=== PATIENT | female | born 1970 | race Caucasian/White ===

== ENCOUNTER 2016-10-20 05:23 | Day surgery (SDC) ==
[2016-10-20] MEDS ORDERED: LR 1,000 ML ONE (05:36)
[2016-10-20] MEDS ORDERED: KEFZOL 1 GM/D5W 0 ML ONE (05:36)
[2016-10-20] MEDS ORDERED: VANCOMYCIN 1 GM/NS 250 ML ONE (05:41)
[2016-10-20] MEDS ORDERED: NEOSPORIN G.U. IRRIGANT ONE (06:41)
[2016-10-20] MEDS ORDERED: SENSORCAINE 0.5%-EPI 1:200,000 ONE (06:41)
[2016-10-20] MEDS ORDERED: TRANSDERM-SCOP ONE (06:43)
[2016-10-20] MEDS ORDERED: FENTANYL ONE (07:52)
[2016-10-20] MEDS ORDERED: DIPRIVAN 1% ONE (07:53)
[2016-10-20] MEDS ORDERED: VERSED ONE (07:53)
[2016-10-20] MEDS ORDERED: DILAUDID ONE (07:54)
[2016-10-20] MEDS ORDERED: KETAMINE (DOSE) ONE (07:55)
[2016-10-20] MEDS: DILAUDID ONE ×5 (07:56→08:30)
[2016-10-20] MEDS ORDERED: NORCO-10 ONE (09:00)
[2016-10-20] MEDS ORDERED: DECADRON ONE (09:04)
[2016-10-20] MEDS ORDERED: ZOFRAN ONE (09:04)
[2016-10-20] MEDS ORDERED: EPHEDRINE ONE (09:04)
[2016-10-20 09:43] VITALS: BP 109/65
--- NOTE | 2016-10-20 09:59 | OPERATIVE NOTE ---
PROCEDURE DATE: 10/20/2016 PREOPERATIVE DIAGNOSIS: Right wrist dorsal ganglion cyst. POSTOPERATIVE DIAGNOSIS: Right wrist dorsal ganglion cyst. PROCEDURE PERFORMED: Excision of right wrist dorsal ganglion cyst. SURGEON: Jigar Mccall MD ASSISTANTS: HATTIE Mckenna ANESTHESIA: General. COMPLICATIONS: None. BLOOD LOSS: Minimal. DESCRIPTION OF PROCEDURE: The patient was brought to the operative suite and placed in supine position. After successful administration of general anesthesia, a well-padded tourniquet was placed on the right proximal arm. The right upper extremity was prepped and draped in the usual sterile fashion. The arm was exsanguinated. The tourniquet was insufflated to 250 torr. A longitudinal was then made overlying the cyst. It was dissected sharply through the skin and bluntly down to the cyst. The cyst was then excised off its origin off the dorsal aspect of the scapholunate ligament. A window of the capsule was incised and then it was electrocauterized to prevent recurrence. The skin edges were then approximated with interrupted nylon suture. The wound was injected with Marcaine and a sterile dressing was applied. The patient tolerated the procedure well without complication. At the end of the procedure, all counts were correct x2. The patient was transferred to the recovery room in stable condition.
== END 2016-10-20 09:52 | disposition home or self-care (01) ==
LOC: OPS 05:23
PROVIDERS: ATTEND Orthopaedic Surgery
DX: M67.431 Ganglion, right wrist (principal)
CPT/HCPCS: 88304; J0690; J1100; J1170; J2250; J2405; J3010; J3370; J7120

== ENCOUNTER 2017-05-19 01:34 | Inpatient (IN) ==
[2017-05-14 11:10] LABS: URINE MICRO REVIEW NEEDED? NO; URINE SOURCE CLEAN CATCH
[2017-05-14 11:17] LABS: BILIRUBIN URINE NEGATIVE (NEGATIVE); BLOOD URINE NEGATIVE (NEGATIVE); COLOR YELLOW; GLUCOSE URINE NEGATIVE (NEGATIVE); LEUKOCYTES URINE TRACE (NEGATIVE); NITRITE URINE NEGATIVE (NEGATIVE); PROTEIN URINE 30 mg/dL (NEGATIVE); SP GRAVITY URINE 1.036; TURBIDITY URINE CLEAR (CLEAR); UROBILINOGEN URINE 2 mg/dL (NORMAL)
[2017-05-14 11:18] LABS: UR EPITHELIAL CELLS >10 /HPF (<10); URINE BACTERIA 1+ /HPF; URINE RBC <10 /HPF (<10); URINE WBC <10 /HPF (<10)
[2017-05-14 11:20] LABS: HEMATOCRIT 42.7 % (37.0-47.0); HEMOGLOBIN 14.3 g/dL (12.0-16.0); MCH 32.4 PG (27-31); MCHC 33.5 g/dL (33-37); MCV 96.8 FL (81-99); MPV 9.9 FL (7.4-10.4); RBC 4.41 XMIL (4.2-5.4)
[2017-05-19] MEDS ORDERED: PEPCID ONE (05:31)
[2017-05-19] MEDS ORDERED: VALIUM ONE (05:31)
[2017-05-19] MEDS ORDERED: TRANSDERM-SCOP ONE (05:31)
[2017-05-19] MEDS ORDERED: KEFZOL 1 GM/D5W 1 GM/50 ML IVPB ONE (05:32)
[2017-05-19] MEDS ORDERED: LR 1,000 ML ONE ×2 (05:32→08:47)
[2017-05-19] MEDS ORDERED: DIPRIVAN 1% ONE (05:56)
[2017-05-19] MEDS ORDERED: FENTANYL ONE (05:56)
[2017-05-19] MEDS ORDERED: VERSED ONE (05:56)
[2017-05-19] MEDS ORDERED: XYLOCAINE-MPF 2% ONE (07:08)
[2017-05-19] MEDS ORDERED: ZOFRAN ONE (07:08)
[2017-05-19] MEDS ORDERED: NORCURON ONE (07:08)
[2017-05-19] MEDS ORDERED: STERILE WATER INJ. ONE (07:08)
[2017-05-19] MEDS ORDERED: QUELICIN (DOSE) ONE (07:08)
[2017-05-19] MEDS ORDERED: ROBINUL ONE (07:08)
[2017-05-19] MEDS ORDERED: NEOSTIGMINE ONE (07:08)
[2017-05-19 07:29] LABS: URINE MICRO REVIEW NEEDED? NO; URINE SOURCE CATH
[2017-05-19 07:33] LABS: BILIRUBIN URINE NEGATIVE (NEGATIVE); BLOOD URINE NEGATIVE (NEGATIVE); COLOR YELLOW; GLUCOSE URINE NEGATIVE (NEGATIVE); LEUKOCYTES URINE NEGATIVE (NEGATIVE); NITRITE URINE NEGATIVE (NEGATIVE); PH URINE 7.5; PROTEIN URINE TRACE mg/dL (NEGATIVE); TURBIDITY URINE CLEAR (CLEAR); UROBILINOGEN URINE NORMAL (NORMAL)
[2017-05-19 07:34] LABS: UR EPITHELIAL CELLS <10 /HPF (<10); URINE BACTERIA NEGATIVE /HPF; URINE RBC <10 /HPF (<10); URINE WBC <10 /HPF (<10)
[2017-05-19] MEDS ORDERED: EXPAREL 1.3% ONE (07:37)
[2017-05-19] MEDS ORDERED: MARCAINE 0.25% PF ONE (07:37)
[2017-05-19] MEDS ORDERED: NAROPIN 0.5% ONE (07:46)
[2017-05-19] MEDS ORDERED: SODIUM CHLORIDE 0.9% 10 ML ONE (07:47)
[2017-05-19] MEDS ORDERED: DILAUDID PCA VIAL ONE (08:46)
[2017-05-19] MEDS: DEMEROL ONE ×2 (08:50→08:55)
[2017-05-19] MEDS ORDERED: NARCAN IV PRN (09:10)
[2017-05-19] MEDS ORDERED: PHENERGAN IV PRN (09:10)
[2017-05-19] MEDS ORDERED: LR 1,000 ML IV SCH (09:10)
[2017-05-19] MEDS ORDERED: SODIUM CHLORIDE 0.9% INJ PRN (09:10)
[2017-05-19] MEDS: DILAUDID ONE ×2 (09:10→09:20)
[2017-05-19] MEDS ORDERED: BENADRYL IV PRN (09:10)
[2017-05-19] MEDS ORDERED: DILAUDID PCA VIAL IV PRN (09:10)
[2017-05-19] MEDS: PHENERGAN ONE ×2 (09:25→09:30)
[2017-05-19] MEDS ORDERED: CLIMARA 0.05 MG/24 HR PATCH TD ONE (10:12)
[2017-05-19] MEDS: LR 1,000 ML IV SCH ×3 (10:20→23:27)
[2017-05-19] MEDS: PERIDEX MT SCH ×2 (15:59→23:28)
[2017-05-19] MEDS: CYMBALTA PO SCH (16:00)
[2017-05-19] MEDS: NEURONTIN PO PRN (16:07)
[2017-05-20] MEDS: LR 1,000 ML IV SCH (05:35)
[2017-05-20] MEDS: PRILOSEC PO SCH ×2 (05:35→06:04)
[2017-05-20 05:39] LABS: HEMATOCRIT 36.9 % (37.0-47.0); HEMOGLOBIN 12.1 g/dL (12.0-16.0); MCH 32.2 PG (27-31); MCHC 32.8 g/dL (33-37); MCV 98.1 FL (81-99); MPV 9.8 FL (7.4-10.4); RBC 3.76 XMIL (4.2-5.4)
[2017-05-20] MEDS ORDERED: SALINE LOCK IV FLUID XX ONE ×2 (06:33→08:35)
[2017-05-20] MEDS ORDERED: NORCO-10 PO PRN (08:14)
[2017-05-20] MEDS ORDERED: PERCOCET-10 PO PRN (08:33)
[2017-05-20] MEDS: CYMBALTA PO SCH (08:57)
[2017-05-20] MEDS: PERIDEX MT SCH (08:57)
[2017-05-20] MEDS: NEURONTIN PO PRN (09:21)
[2017-05-20 11:20] VITALS: BP 133/75
== END 2017-05-20 14:47 | disposition home or self-care (01) ==
LOC: SURHOLD 01:34 → 4N 08:57
PROVIDERS: ADMIT Obstetrics & Gynecology; ATTEND Obstetrics & Gynecology